=== PATIENT | male | born 1980 | race Hispanic/Latino ===

== ENCOUNTER 2021-05-25 16:05 | Emergency (ER) | payer MEDICAID, OTHER ==
[~2021-05-25] VITALS: Ht 172.7 cm; Wt 67.3 kg
[2021-05-25 18:04] LABS: RSV AMPLIFICATION NEGATIVE (NEGATIVE)
[2021-05-25 18:56] VITALS: O2SAT 97
--- NOTE | 2021-05-25 19:12 | REP ---
INDICATION: SHORTNESS OF BREATH, CHEST PAIN, COUGH. COMPARISON: None. TECHNIQUE: Portable FINDINGS: The technique utilized in obtaining the radiograph has magnified the cardiac silhouette and accentuated the interstitial markings. The superior mediastinal structures are midline. The cardiac silhouette is unremarkable in size, shape, and position. The diaphragmatic surfaces of the lungs are regular, and the costophrenic angles are clear. The pulmonary lenz are clear. The imaged osseous structures are intact. Suspected soft tissue calcifications are seen adjacent to the proximal humerus. IMPRESSION: There is no acute cardiopulmonary disease. <Electronically signed by Ralf Simental > 05/25/21 [id number]
[2021-05-25 21:10] LABS: BASO % 0.3 % (0.0-1.0); EOS # 0.2 10^3/uL (0.0-0.5); EOS % 2.2 % (0.0-3.0); HEMOGLOBIN 14.4 g/dl (13.5-17.5); LYMPH # 2.5 10^3/uL (1.5-5.0); LYMPH % 24.8 % (24.0-44.0); MEAN CORPUSCULAR HEMOGLOBIN 32.2 pg (27.0-33.0); MEAN CORPUSCULAR HGB CONC 33.5 g/dl (32.0-36.5); MEAN CORPUSCULAR VOLUME 96.2 fl (80.0-96.0); MONO # 0.6 10^3/uL (0.0-0.8); MONO % 6.2 % (2.0-8.0); NEUTROPHILS # 6.8 10^3/uL (1.5-8.5); NEUTROPHILS % 66.1 % (36.0-66.0); PLATELET COUNT, AUTOMATED 266 10^3/uL (150-450); RED BLOOD COUNT 4.47 10^6/uL (4.30-6.10); WHITE BLOOD COUNT 10.3 10^3/uL (4.0-10.0)
[2021-05-25 21:36] LABS: ALBUMIN 3.4 GM/DL (3.2-5.2); ALT/SGPT 28 U/L (12-78); BILIRUBIN,TOTAL 0.6 MG/DL (0.2-1.0); BLOOD UREA NITROGEN 19 MG/DL (7-18); CALCIUM LEVEL 9.1 MG/DL (8.5-10.1); CARBON DIOXIDE LEVEL 32 MEQ/L (21-32); CHLORIDE LEVEL 107 MEQ/L (98-107); CREATININE FOR GFR 0.94 MG/DL (0.70-1.30); GLOMERULAR FILTRATION RATE > 60.0 (>60); GLUCOSE, FASTING 87 MG/DL (70-100); POTASSIUM SERUM 5.1 MEQ/L (3.5-5.1); SODIUM LEVEL 139 MEQ/L (136-145); TOTAL PROTEIN 7.6 GM/DL (6.4-8.2)
[2021-05-26 01:15] VITALS: BP 135/75
--- NOTE | 2021-05-26 08:06 | ECGEPIP ---
[facility] - ED Test Date: 2021-05-25 Pat Name: FRANCINE SCOTT Department: Room: - Gender: Male [employer]: ED : 1980 Requested By: Myah Mendieta PA-C Order Number: [id number] Reading MD: Robert Ricks Measurements Intervals [place] Rate: 58 P: 59 MT: 136 QRS: 43 QRSD: 88 T: 40 QT: 428 QTc: 420 Interpretive Statements Sinus bradycardia NO PRIORS FOR COMPARISON Electronically Signed on 05-26-2021 8:05:49 EDT by Robert Ricks
== END 2021-05-26 01:45 | disposition home or self-care (01) ==
LOC: EDBD 16:05 → M ED 16:05
DX: J06.9 Acute upper respiratory infection, unspecified (principal); B34.9 Viral infection, unspecified; R19.7 Diarrhea, unspecified; R07.89 Other chest pain; R50.9 Fever, unspecified; R00.1 Bradycardia, unspecified; G35 Multiple sclerosis; F17.200 Nicotine dependence, unspecified, uncomplicated